=== PATIENT | male | born 2000 | race Caucasian/White ===

== ENCOUNTER 2025-05-08 12:49 | Emergency (ER) | payer MEDICAID ==
[~2025-05-08] VITALS: Ht 175.3 cm; Wt 81.0 kg
[2025-05-08 13:23] VITALS: BP 100/65; PULSE 80; RESP 16; O2SAT 99
[2025-05-08] MEDS: ondansetron 4mg rapidly disintigrating tab PO ONE (14:10)
[2025-05-08 14:12] LABS: LEUKOCYTE ESTERASE ,URINE NEGATIVE (Neg); NITRITES, URINE NEGATIVE (Neg); OCCULT BLOOD,URINE NEGATIVE (Neg)
[2025-05-08 14:15] LABS: UA COLLECTION TYPE CLN CATCH MIDSTREAM
[2025-05-08 14:18] LABS: MEAN PLATELET VOLUME 8.7 FL (7.4-10.4); RED CELL DISTRIBUTION WIDTH 13.4 % (11.5-14.5)
[2025-05-08 14:19] LABS: FINE GRANULAR CAST 0-3 /LPF (NEGATIVE); MUCUS STRANDS MANY /LPF (Neg); SQUAMOUS EPITHELIAL CELL,UR FEW /LPF (FEW)
[2025-05-08 14:27] LABS: CREATININE 0.91 MG/DL (0.60-1.10); TOTAL CARBON DIOXIDE 29.5 MMOL/L (24-32); eCRCL 126 ML/MIN; eGFR > 90 ML/MIN
--- NOTE | 2025-05-08 14:35 | Physician Documentation ---
History of Present Illness ~ Chief Complaint: Vomiting Stated Complaint: N/V Time Seen by MD: 13:51 HPI This is a 25-year-old male who presents with one day of vomiting unable to keep food or drink down. Reports recent constipation, reports no fever. Medication Reconciliation Allergies: Coded Allergies: No Known Allergies (Unverified , 05/08/25) Scheduled Docusate Sodium (Docusate Sodium), 1 CAP PO Q12H Scheduled PRN ONDANSETRON ODT 4mg tablet (Ondansetron Odt), 1 TAB PO Q6H PRN PRN for nausea/vomiting Past Medical History Past Medical History: No Pertinent History Review of Systems ROS As stated above in the HPI, otherwise all systems are reviewed and negative. Physical Exam Vital Signs: Temperature: 97.9, Source: Temporal, Heart Rate: 80, Respiratory Rate: 16, BP: 100/65, Pulse Oximetry: 99, Weight: 81.000 Oxygen Flow Rate: 0 Physical Exam VITALS: Reviewed and as above. GENERAL: Alert, nontoxic appearing, no apparent distress. RESPIRATORY: No increased work of breathing, no respiratory distress, speaking in full clear sentences, clear lung sounds all [place] CV: Regular rate and rhythm no murmur BACK: No CVA tenderness GI: Mild suprapubic tenderness to palpation, otherwise nontender, soft, nondistended, no rebound, no guarding, bowel sounds present Progress Results/Orders Results/Orders Orders - DEVYN PACHECO Cult Urine + [place] [address] (05/08/25 14:19) Completed Orders - DEVYN PACHECO Cbc/Diff (05/08/25 13:53) CMP (05/08/25 13:53) Ondansetron Disint. Tablet (Zofran Odt T (05/08/25 13:55) Ua W/Microscopic, Cult If Ind (05/08/25 13:59) Procalcitonin (05/08/25 15:01) Vital Signs 05/08/25 05/08/25 05/08/25 13:23 13:44 16:50 Temp 97.9 97.9 Pulse 80 Resp 16 B/P (MAP) 100/65 Pulse Ox 99 O2 Flow Rate 0 Laboratory Tests Test 05/08/25 13:59 05/08/25 14:04 Urine Specimen Description Cln catch midstream Urine Color Yellow Urine Clarity Clear Urine pH 6.5 Urine Specific [place] 1.020 Urine Protein Trace Urine Glucose (UA) Negative Urine Ketones Trace H Urine Occult Blood Negative Urine Nitrite Negative Urine Bilirubin Negative Urine Urobilinogen 1.0 Urine Leukocyte Esterase Negative Urine RBC None seen Urine WBC 5-10 H Urine Squamous Epithelial Cells Few Urine Bacteria Few Urine Fine Granular Casts 0-3 Urine Mucus Many Urine Culture Indicated Indicated Volume Urine Centrifuged 10 ml Urine Comment White Blood Count 17.1 H Red Blood Count 5.47 Hemoglobin 15.8 Hematocrit 47.1 Mean Corpuscular Volume 86.0 Mean Corpuscular Hemoglobin 28.8 Mean Corpuscular Hemoglobin Concent 33.5 Red Cell Distribution Width 13.4 Platelet Count 268 Mean Platelet Volume 8.7 Neutrophils (%) (Auto) 92.4 H Lymphocytes (%) (Auto) 3.2 L Monocytes (%) (Auto) 4.1 Eosinophils (%) (Auto) 0.1 Basophils (%) (Auto) 0.2 Neutrophils # (Auto) 15.8 H Lymphocytes # (Auto) 0.6 L Monocytes # (Auto) 0.7 Eosinophils # (Auto) 0.0 Basophils # (Auto) 0.0 CBC Comment Sodium Level 142 Potassium Level 4.3 Chloride Level 107 Carbon Dioxide Level 29.5 Anion Gap 6 L Blood Urea Nitrogen 15 Creatinine 0.91 Estimated GFR/1.73 m2 > 90 BUN/Creatinine Ratio 16.5 Glucose Level 114 H Calcium Level 8.8 Total Bilirubin 0.6 Aspartate Amino Transf (AST/SGOT) 16 Alanine Aminotransferase (ALT/SGPT) 29 Alkaline Phosphatase 71 Total Protein 7.7 Albumin 4.3 Globulin 3.4 Albumin/Globulin Ratio 1.3 Procalcitonin < 0.05 Chemistry Comments Microbiology Date/Time Source Procedure Growth Status 05/08/25 14:19 Urine Clean Catch Midstream Urine Culture - Preliminary Culture received. Resulted Medical Decision Making Additional information obtaine: N/A Findings This 25-year-old male presented with nausea and vomiting, physical exam significant for some mild suprapubic tenderness otherwise physical exam benign. Patient responded well to Zofran with significant decrease in nausea and resolution of vomiting with the patient was able to maintain oral intake. Of note patient had increased WBC on lab and WBCs in urine, UTI considered however given patient does not report dysuria antibiotics not indicated this time, will wait for culture results and contact patient if antibiotics indicated. Patient is otherwise well-appearing and appropriate for outpatient follow up. Patient provided home care instructions return to care precautions and follow up instructions. Diff Dx GI Bleed:Consideration: Include: Diverticulitis, Inflammatory BD, Marium-Jovel syndrome Diff Dx Pain:Considerations: Include: Appendicitis, Bowel obstruction, Cholecystitis, Cholelithasis, Constipation, Diverticular disease, Esophageal rupture, Esophagitis, Gastritis, Gastroenteritis, GI hemorrhage, Inflammatory BD, Ischemic bowel, Mass, Pancreatitis, PUD, Testicular torsion, Urinary obstruction, Urinary tract infection, Urolithiasis Diff Dx N/V/D:Considerations: Include: Appendicitis, Bowel obstruction, Dehydration, DKA, Diverticulitis, Diverticulosis, Drug toxicity, Electrolyte imbalance, Food poisoning, Gastroenteritis, GE reflux, Hypovolemia, Hypotension, Inflammatory BD, Impaction, Pancreatitis, PUD, Renal failure, Urinary obstruction, UTI, Urolithiasis Diff Dx Rectal:Considerations: Unlikely: Fissure, Fistula, Foreign body, Im paction, Perirectal abscess, Prostatitis, Rectal prolapse, Subcutaneous abscess, Thrombosed hemorrhoid, Ulcer, UTI, Other Departure Time of Disposition: 16:17 Disposition: 01 HOME / SELF CARE / HOMELESS Impression: Primary Impression: Vomiting Qualified Codes: R11.2 - Nausea with vomiting, unspecified Additional Impression: Abdominal pain Qualified Codes: R10.24 - Suprapubic pain Condition: Improved Discharge Instructions: Nausea and Vomiting, Adult Additional Instructions: I suspect the pain in your lower belly is related to recent constipation, please return to the emergency department immediately if this pain worsens. Please use prescribed antinausea medicine as needed. Please follow up with your primary care provider in the next few days. Please return to the emergency department for any new or worsening concerning symptoms. We cultured your urine please check with the emergency department in 3-4 days to see if you require antibiotics. Referrals: NO PRIMARY CARE PROVIDER (PCP) Prescriptions Docusate Sodium (Docusate Sodium) 100 Mg Capsule 1 CAP PO Q12H for constipation for 7 Days, #14 CAP 0 Refills Prov: DEVYN PACHECO [facility] 05/08/25 ONDANSETRON ODT 4mg tablet (ONDANSETRON ODT) 4 Mg Tab.rapdis 1 TAB PO Q6H PRN PRN for nausea/vomiting for 4 Days, #16 TAB 0 Refills Prov: DEVYN PACHECO 05/08/25 Education Educated: Patient Educated regarding: diagnosis, treatment, prognosis, need for follow up Signature Scribe Signature: No Scribe Attestation: The note accurately reflects work and decisions made by me.BRYAN Blunt 05/09/25 01:25 DEVYN PACHECO May 08, 2025 14:34
[2025-05-08] MEDS ORDERED: ONDA-243 PO (16:19)
[2025-05-08] MEDS ORDERED: DOCU100C43 PO (16:47)
[2025-05-08 16:50] VITALS: TEMP 97.9
== END 2025-05-08 16:50 | disposition home or self-care (01) ==
LOC: ER 12:50
DX: R11.10 Vomiting, unspecified (principal); R10.24 Suprapubic pain; Z79.899 Other long term (current) drug therapy
CPT/HCPCS: 36415; 80053; 81001; 84145; 85025; 87088; 99283